=== PATIENT | female | born 1950 | race Caucasian/White ===

== ENCOUNTER → 2016-11-09 | Outpatient (CLI) | payer OTHER | LOC: MAMO 09:46 | DX: C50.312 Malignant neoplasm of lower-inner quadrant of left female breast (principal) | CPT/HCPCS: G0206 ==

== ENCOUNTER → 2016-12-19 | Outpatient (CLI) | payer OTHER ==
[2016-12-19 15:11] LABS: RED BLOOD COUNT 4.63 M/UL (4.00-5.10); WHITE BLOOD COUNT 11.1 K/UL (4.5-11.0)
== END ==
LOC: RAD 14:47
PROVIDERS: Physician Assistant
DX: J20.9 Acute bronchitis, unspecified (principal); R09.89 Other specified symptoms and signs involving the circulatory and respiratory systems
CPT/HCPCS: 36415; 71020; 85025; 87070; 87077; 87186; 87205

== ENCOUNTER → 2020-12-08 | Outpatient (CLI) | payer MEDICARE, SELFPAY ==
[~2020-12-08] MED LIST: ALDACTONE25 MG PO; ALLEGRA ALLERG180 MG PO; ASPIRIN EC81 MG PO; ATENOLOL50 MG PO; B12 PO; CARAFATE1 GM PO; CARAFATE1 GM/10 ML PO; CARDIZEM CD240 MG PO; CATAPRES 0.1MG0.1 MG PO; CLONIDINE HCL0.1 MG PO; COLACE 100MG C100 MG PO; COLACE100 MG PO; COZAAR100 MG PO; D3 PO; DILT-XR240 MG PO; FERATE240 MG PO; FEXOFENADINE H180 MG PO; FLONASE ALLER15.8 ML; FLOVENT DISKUS50 MCG INH; FOLIC ACID0.8 MG PO; FOLIC ACID1 MG PO; GLUCOPHAGE 850850 MG PO; HYDROXYCHLOROQ200 MG PO; LO-DOSE ASPIRIN81 MG PO; LOSARTAN POTAS100 MG PO; MAGOX 400400 MG PO; METFORMIN HCL850 MG PO; METHOTREXATE T2.5 MG PO; MONTELUKAST SOD10 MG PO; OMEPRAZOLE20 MG PO; ONE DAILY FOR1 EAC3 PO; PLAQUENIL 200200 MG PO; PRAVACHOL40 MG PO; PRAVASTATIN SOD40 MG PO; PREDNISONE5 MG PO; PROTONIX40 MG PO; SINGULAIR10 MG PO; SUCRALFATE1 GM PO; TENORMIN 50 MG50 MG PO; TIZANIDINE HCL2 M1 PO; TYLENOL ARTHRITIS PO; TYLENOL PO; VISTARIL25 MG PO; VITAMIN B-122500 MCG SL; VITAMIN D21250 MCG PO; VITAMIN D31000 UNI1 PO; ZANAFLEX4 MG PO
== END ==
LOC: KOH-I 08:00
DX: R11.0 Nausea (principal); K76.0 Fatty (change of) liver, not elsewhere classified
CPT/HCPCS: 76705

== ENCOUNTER → 2020-12-16 | Day surgery (SDC) | payer MEDICARE, SELFPAY | END | disposition home or self-care (01) | LOC: OR 07:33 | DX: K22.2 Esophageal obstruction (principal); K44.9 Diaphragmatic hernia without obstruction or gangrene; K64.8 Other hemorrhoids; I10 Essential (primary) hypertension; E11.9 Type 2 diabetes mellitus without complications; M06.9 Rheumatoid arthritis, unspecified; K21.9 Gastro-esophageal reflux disease without esophagitis; Z88.2 Allergy status to sulfonamides; Z79.84 Long term (current) use of oral hypoglycemic drugs | CPT/HCPCS: 82962; J2704; J7040 ==

== ENCOUNTER → 2021-01-22 | Day surgery (SDC) | payer MEDICARE, SELFPAY | END | disposition home or self-care (01) | LOC: OR 06:35 | PROVIDERS: Internal Medicine Gastroenterology | PROC: 0D758ZZ Dilation of Esophagus, Via Natural or Artificial Opening Endoscopic (ICD-10-PCS; principal; 2021-01-22 08:15) | DX: K22.2 Esophageal obstruction (principal); K44.9 Diaphragmatic hernia without obstruction or gangrene; K21.9 Gastro-esophageal reflux disease without esophagitis; E11.9 Type 2 diabetes mellitus without complications; M06.9 Rheumatoid arthritis, unspecified; I10 Essential (primary) hypertension; Z85.3 Personal history of malignant neoplasm of breast; Z88.2 Allergy status to sulfonamides; Z79.84 Long term (current) use of oral hypoglycemic drugs; Z79.52 Long term (current) use of systemic steroids; Z79.82 Long term (current) use of aspirin; Z79.899 Other long term (current) drug therapy | CPT/HCPCS: 82962; J2001; J2704; J7040 ==

== ENCOUNTER → 2021-02-12 | Outpatient (CLI) | payer MEDICARE, OTHER | LOC: MAMO 01-13 13:00 | DX: Z12.31 Encounter for screening mammogram for malignant neoplasm of breast (principal); Z85.3 Personal history of malignant neoplasm of breast; Z90.12 Acquired absence of left breast and nipple | CPT/HCPCS: 77063; 77067 ==

== ENCOUNTER → 2021-04-17 | Outpatient (CLI) | payer MEDICARE ==
[2021-04-17 09:20] LABS: HEMOGLOBIN 13.8 gm/dl (12.3-15.3); RED BLOOD COUNT 4.76 M/UL (4.00-5.10); WHITE BLOOD COUNT 9.2 K/UL (4.5-11.0)
[2021-04-17 09:45] LABS: BUN/CREATININE RATIO 13 (0-10)
[2021-04-18 10:16] LABS: CREATININE, URINE 34.4 mg/dL (Not Estab.)
== END ==
LOC: LAB 08:26
PROVIDERS: Family Medicine
DX: D50.9 Iron deficiency anemia, unspecified (principal); E55.9 Vitamin D deficiency, unspecified; K21.9 Gastro-esophageal reflux disease without esophagitis; Z79.899 Other long term (current) drug therapy; E78.5 Hyperlipidemia, unspecified; I10 Essential (primary) hypertension; E11.9 Type 2 diabetes mellitus without complications; C50.619 Malignant neoplasm of axillary tail of unspecified female breast; M05.79 Rheumatoid arthritis with rheumatoid factor of multiple sites without organ or systems involvement
CPT/HCPCS: 36415; 80053; 80061; 82043; 82570; 82607; 82728; 83540; 83550; 83735; 85025; 85652; 86140

== ENCOUNTER → 2021-05-29 | Outpatient (CLI) | payer MEDICARE | LOC: EXRD 07:43 | DX: I10 Essential (primary) hypertension (principal) | CPT/HCPCS: 93975 ==

== ENCOUNTER → 2021-06-26 | Outpatient (CLI) | payer MEDICARE | LOC: KOH-I 09:44 | DX: R42 Dizziness and giddiness (principal); G31.9 Degenerative disease of nervous system, unspecified | CPT/HCPCS: 70450 ==

== ENCOUNTER → 2021-07-29 | Outpatient (CLI) | payer MEDICARE ==
[2021-07-29 14:21] LABS: BUN/CREATININE RATIO 17 (0-10)
== END ==
LOC: LAB 13:35
PROVIDERS: Internal Medicine Nephrology
DX: E87.1 Hypo-osmolality and hyponatremia (principal)
CPT/HCPCS: 36415; 80048

== ENCOUNTER → 2021-08-10 | Outpatient (CLI) | payer MEDICARE ==
[2021-08-10 12:12] LABS: BUN/CREATININE RATIO 12 (0-10)
== END ==
LOC: LAB 11:18
PROVIDERS: Internal Medicine Nephrology
DX: E87.1 Hypo-osmolality and hyponatremia (principal)
CPT/HCPCS: 36415; 80048

== ENCOUNTER → 2021-09-23 | Outpatient (CLI) | payer MEDICARE ==
[2021-09-23 09:50] LABS: HEMOGLOBIN 12.1 gm/dl (12.3-15.3); RED BLOOD COUNT 3.95 M/UL (4.00-5.10); WHITE BLOOD COUNT 9.7 K/UL (4.5-11.0)
[2021-09-24 08:15] LABS: A/G RATIO 1.7 (1.2-2.2); ALKALINE PHOSPHATASE, S 21 IU/L (44-121); ALT (SGPT) 16 IU/L (0-32); AST (SGOT) 17 IU/L (0-40); BILIRUBIN, TOTAL 0.4 mg/dL (0.0-1.2); BUN 10 mg/dL (8-27); BUN/CREATININE RATIO 13 (12-28); CALCIUM, SERUM 9.4 mg/dL (8.7-10.3); CARBON DIOXIDE, TOTAL 22 mmol/L (20-29); CHLORIDE, SERUM 96 mmol/L (96-106); CHOLESTEROL, TOTAL 173 mg/dL (100-199); CREATININE, SERUM 0.76 mg/dL (0.57-1.00); EGFR IF AFRICN AM 93 (>59); EGFR IF NONAFRICN AM 80 (>59); ESTIM. AVG GLU (EAG) 169 mg/dL (.); FERRITIN 18 ng/mL (15-150); GLOBULIN, TOTAL 2.7 g/dL (1.5-4.5); GLUCOSE, SERUM 134 mg/dL (65-99); HDL CHOLESTEROL 85 mg/dL (>39); HEMOGLOBIN A1C 7.5 % (4.8-5.6); IRON BIND.CAP.(TIBC) 377 ug/dL (250-450); IRON SATURATION 12 % (15-55); IRON, SERUM 46 ug/dL (27-139); LDL CHOLESTEROL CALC 60 mg/dL (0-99); LDL/HDL RATIO 0.7 ratio (0.0-3.2); MAGNESIUM 1.7 mg/dL (1.6-2.3); POTASSIUM, SERUM 4.5 mmol/L (3.5-5.2); PROTEIN, TOTAL, SERUM 7.2 g/dL (6.0-8.5); SODIUM, SERUM 136 mmol/L (134-144); TRIGLYCERIDES 177 mg/dL (0-149); UIBC 331 ug/dL (118-369); VITAMIN D, 25-HYDROXY 37.4 ng/mL (30.0-100.0)
== END ==
LOC: LAB 08:44
PROVIDERS: Family Medicine
DX: D50.9 Iron deficiency anemia, unspecified (principal); E87.1 Hypo-osmolality and hyponatremia; R80.9 Proteinuria, unspecified; E78.5 Hyperlipidemia, unspecified; I10 Essential (primary) hypertension; E83.42 Hypomagnesemia; K21.9 Gastro-esophageal reflux disease without esophagitis; Z79.899 Other long term (current) drug therapy; E11.9 Type 2 diabetes mellitus without complications
CPT/HCPCS: 36415; 80053; 80061; 82436; 82570; 82607; 82728; 83036; 83540; 83550; 83735; 83935; 84133; 84156; 84300; 85025

== ENCOUNTER → 2021-10-12 | Outpatient (CLI) | payer MEDICARE ==
[~2021-10-12] VITALS: Ht 175.3 cm; Wt 68.9 kg
== END ==
LOC: EROP 10:45
DX: U07.1 COVID-19 (principal); Z23 Encounter for immunization; E11.9 Type 2 diabetes mellitus without complications; I10 Essential (primary) hypertension
CPT/HCPCS: M0247; Q0247

== ENCOUNTER → 2021-10-28 | Outpatient (CLI) | payer MEDICARE ==
[2021-10-28 15:35] LABS: BUN/CREATININE RATIO 14 (0-10)
== END ==
LOC: LAB 14:16
PROVIDERS: Internal Medicine Nephrology
DX: E87.1 Hypo-osmolality and hyponatremia (principal)
CPT/HCPCS: 36415; 80048

== ENCOUNTER → 2021-11-06 | Outpatient (CLI) | payer MEDICARE ==
[2021-11-06 11:58] LABS: BUN/CREATININE RATIO 13 (0-10)
== END ==
LOC: LAB 10:44
PROVIDERS: Internal Medicine Nephrology
DX: I10 Essential (primary) hypertension (principal)
CPT/HCPCS: 36415; 80048

== ENCOUNTER → 2021-11-25 | Outpatient (CLI) | payer MEDICARE | LOC: EXRD 10:50 | DX: N28.1 Cyst of kidney, acquired (principal) | CPT/HCPCS: 76775 ==

== ENCOUNTER → 2021-11-25 | Outpatient (CLI) | payer MEDICARE ==
[2021-11-25 14:38] LABS: BUN/CREATININE RATIO 11 (0-10)
== END ==
LOC: LAB 14:02
PROVIDERS: Internal Medicine Nephrology
DX: I10 Essential (primary) hypertension (principal)
CPT/HCPCS: 36415; 80048

== ENCOUNTER → 2021-12-14 | Outpatient (CLI) | payer MEDICARE | LOC: ECHO 12-09 12:30 | DX: I08.3 Combined rheumatic disorders of mitral, aortic and tricuspid valves (principal) | CPT/HCPCS: ECHO; 93306 ==

== ENCOUNTER → 2022-01-21 | Outpatient (CLI) | payer MEDICARE ==
[2022-01-21 14:25] LABS: BUN/CREATININE RATIO 21 (0-10)
== END ==
LOC: LAB 13:44
PROVIDERS: Internal Medicine Nephrology
DX: E87.1 Hypo-osmolality and hyponatremia (principal)
CPT/HCPCS: 36415; 80048

== ENCOUNTER → 2022-02-18 | Outpatient (CLI) | payer MEDICARE | LOC: MAMO 02-15 13:00 | DX: Z12.31 Encounter for screening mammogram for malignant neoplasm of breast (principal); C50.312 Malignant neoplasm of lower-inner quadrant of left female breast | CPT/HCPCS: 77063; 77067 ==

== ENCOUNTER → 2022-02-24 | Outpatient (CLI) | payer MEDICARE ==
[2022-02-24 11:16] LABS: HEMOGLOBIN 12.3 gm/dl (12.3-15.3); RED BLOOD COUNT 3.87 M/UL (4.00-5.10); WHITE BLOOD COUNT 12.5 K/UL (4.5-11.0)
[2022-02-24 11:56] LABS: BUN/CREATININE RATIO 14 (0-10)
== END ==
LOC: LAB 09:10
PROVIDERS: Internal Medicine
DX: E55.9 Vitamin D deficiency, unspecified (principal); E78.5 Hyperlipidemia, unspecified; I10 Essential (primary) hypertension; D50.9 Iron deficiency anemia, unspecified; R80.9 Proteinuria, unspecified; E87.1 Hypo-osmolality and hyponatremia; Z79.899 Other long term (current) drug therapy
CPT/HCPCS: 36415; 80053; 80061; 82570; 82607; 82728; 83540; 83550; 83735; 84156; 85025